=== PATIENT | female | born 1975 | race Hispanic/Latino ===

== ENCOUNTER 2025-02-27 16:43 | Observation (INO) | payer SELFPAY ==
[2025-02-27] MEDS ORDERED: Acetaminophen 325 MG TAB PO PRN (17:33)
[2025-02-27] MEDS ORDERED: Senokot S 8.6-50 MG TAB PO PRN (17:33)
[2025-02-27] MEDS ORDERED: Nitroglycerin 0.4 MG TAB (25 Tab Bottle) SL PRN (17:33)
[2025-02-27] MEDS ORDERED: Melatonin 3 MG TAB PO PRN (17:33)
[2025-02-27 17:46] VITALS: BMI 44.3
[2025-02-27] MEDS ORDERED: Dextrose 50% Abboject 50 ML SYRINGE SLOW IVP PRN (18:24)
[2025-02-27] MEDS ORDERED: Glucagon 1 MG/ML KIT IM PRN (18:24)
[2025-02-27 19:10] LABS: Troponin I Less than 0.010 ng/mL (< 0.028)
[2025-02-27] MEDS: Famotidine 20 MG TAB PO SCH (21:26)
[2025-02-27] MEDS: Enoxaparin 40 MG (0.4 mL) SYRINGE SC SCH (21:26)
[2025-02-27 21:30] LABS: Troponin I Less than 0.010 ng/mL (< 0.028)
[2025-02-28 06:56] LABS: #Basophils 0.03 10x3/uL (0.0-0.2); #Eosinophils 0.16 10x3/uL (0.0-0.5); #Monocytes 0.43 10x3/uL (0.0-1.1); #Neutrophils 2.90 10x3/uL (1.5-8.4); %Basophils 0.5 % (0.0-2.0); %Eosinophils 2.7 % (0.0-6.0); %Lymphocytes 39.3 % (18.0-47.0); %Monocytes 7.4 % (0.0-10.0); %Neutrophils 49.8 % (40.0-75.0); Hematocrit 37.0 % (34.9-44.5); Hemoglobin 12.1 g/dL (12.0-15.5); Mean Corpuscular Hemoglobin 28.1 pg (27.0-33.0); Mean Corpuscular Volume 86.0 fL (81.6-98.3); Platelet Count 255 10x3/uL (150-450); Red Blood Cell (RBC) Count 4.30 10x6/uL (3.90-5.03); White Blood Cell (WBC) Count 5.83 10x3/uL (3.5-10.5)
[2025-02-28 07:16] LABS: Anion Gap 13 mmol/L (10-20); BUN (Urea Nitrogen) 9 mg/dL (7.0-18.7); Calc. Creatinine Clearance 206 mL/min (70-130); Calcium 8.4 mg/dL (7.8-10.44); Carbon Dioxide 23 mmol/L (22-29); Cardiac Risk 3.6 (Less than 4.5); Chloride 105 mmol/L (98-107); Cholesterol 179 mg/dl (< 200 Desired); Glucose 199 mg/dL (70-105); HDL Cholesterol 50 mg/dL (>60 Neg Risk); LDL Cholesterol, Calculated 87 mg/dL; Potassium 3.8 mmol/L (3.5-5.1); Sodium 137 mmol/L (136-145); Triglycerides 208 mg/dL (Less than 150)
[2025-02-28] MEDS: Aspirin Chewable 81 MG TAB PO SCH (09:24)
[2025-02-28 12:42] VITALS: BP 122/70; TEMP 97.9
[2025-02-28] MEDS: PNEUMOC 20-VAL CONJ-DIP CRM/PF 0.5 ML SYRINGE IM ONE (12:50)
== END 2025-02-28 14:18 | disposition home or self-care (01) ==
LOC: CSHTELE 17:30
PROVIDERS: ADMIT Internal Medicine; ATTEND Internal Medicine
PROC: B24BZZZ Ultrasonography of Heart with Aorta (ICD-10-PCS; principal; 2025-02-28)
DX: R07.89 Other chest pain (principal); I25.10 Atherosclerotic heart disease of native coronary artery without angina pectoris; I10 Essential (primary) hypertension; E11.9 Type 2 diabetes mellitus without complications; Z79.84 Long term (current) use of oral hypoglycemic drugs; Z79.4 Long term (current) use of insulin
CPT/HCPCS: 36415; 36416; 80048; 80061; 83036; 84443; 85025; 85379; 93005; 93010; 93306; 96372; G0378; J1650; J1815